=== PATIENT | male | born 1995 | race Caucasian/White ===

== ENCOUNTER 2016-10-25 12:57 | Emergency (ER) | payer OTHER ==
[2016-10-25 13:02] VITALS: RESP 16; TEMP 99.3
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
--- NOTE | 2016-10-25 14:07 | US ---
Testicular Ultrasound INDICATION: Right-sided pain for 30 days. TECHNIQUE: Bilateral testicular ultrasound is performed. No priors for comparison. FINDINGS: Right testicle measures 5.8 x 3.9 x 2.7 cm. Left testicle measures 5 x 3.4 x 2.4 cm. Both a re sonographically normal. No mass or cyst. Color Doppler flow is normal bilaterally. The epididymides are normal bilaterally. There is an incidental small right hydrocele and left varico danielle. IMPRESSION: 1. Normal bilateral epididymides and testicles. 2. Left-sided varicocele. 3. Small right-sided hydrocele. Findings are discussed with Tramaine Crowe at the time of the reading.
[2016-10-25 14:35] LABS: COLOR YELLOW; LEUKOCYTE ESTERASE,URINE NEGATIVE (NEGATIVE); NITRITE,URINE NEGATIVE (NEGATIVE)
[2016-10-25 14:41] LABS: MUCUS TRACE /lpf (NONE-1+)
[2016-10-25 14:44] LABS: RBC,URINE NONE SEEN /hpf (0-3); WBC,URINE NONE SEEN /hpf (0-3)
[2016-10-25 15:03] VITALS: BP 127/65; PULSE 82; O2SAT 95
[2016-10-28 13:06] LABS: CHLAMYDIA AMPLIFICATION GENPRB NEGATIVE (NEGATIVE)
== END 2016-10-25 15:03 | disposition home or self-care (01) ==
DX: I86.1 Scrotal varices (principal); N43.3 Hydrocele, unspecified